=== PATIENT | male | born 2000 | race Two or more races ===

== ENCOUNTER 2025-05-09 22:21 | Emergency (ER) | payer OTHER ==
[~2025-05-09] VITALS: Ht 175.3 cm; Wt 104.3 kg
[2025-05-10 00:33] VITALS: BP 130/87; O2SAT 96
[2025-05-10 01:42] LABS: BASO % 0.7 % (0.1-1.2); EOS # 0.04 (0.04-0.54); EOS % 0.6 % (0.7-7.0); LYMPH # 2.02 (1.18-3.74); LYMPH % 28.1 % (19.3-53.1); MEAN PLATELET VOLUME 10.20 fl (9.4-12.4); MONO # 0.67 (0.24-0.82); MONO % 9.3 % (4.7-12.5); NEUT # 4.39 (1.56-6.13); NEUT % 61.0 % (34.0-71.1); RED CELL DISTRIBUTION WIDTH 12.3 % (11.6-14.4)
[2025-05-10 02:20] LABS: BUN CREA RATIO 14.0 (7.0-25.0); CREATININE SERUM 1.0 mg/dL (0.70-1.30); GFR 91.04; GLUCOSE FASTING 101.0 mg/dL (65-100); OSMOLALITY SERUM 278.0 MOSM/KG (275-295)
[2025-05-10] MEDS ORDERED: HYDROXYZINE PAM50 MG PO ×2 (03:33)
== END 2025-05-10 03:49 | disposition home or self-care (01) ==
LOC: ER 22:21
PROVIDERS: General Practice
DX: F41.8 Other specified anxiety disorders (principal); R00.2 Palpitations